=== PATIENT | female | born 1980 | race African-American/Black ===

== ENCOUNTER 2024-05-30 12:49 | Emergency (ER) | payer OTHER, MEDICARE ==
[2024-05-30] MEDS ORDERED: Ketorolac Tromethamine 30 MG (1 mL) VIAL ONE (13:27)
[2024-05-30] MEDS ORDERED: Methocarbamol 500 MG TAB ONE (13:28)
[2024-05-30] MEDS ORDERED: HYDROcodone/Acetaminophen 5/325 mg Tablet ONE (13:57)
== END 2024-05-30 14:11 | disposition home or self-care (01) ==
LOC: CSHERS 12:49
DX: M54.31 Sciatica, right side (principal); N61.0 Mastitis without abscess
CPT/HCPCS: 96372; 99283; J1885

== ENCOUNTER 2024-06-07 11:41 | Emergency (ER) | payer MEDICARE ==
[2024-06-07] MEDS ORDERED: Cyclobenzaprine 10 MG TAB ONE (13:34)
[2024-06-07] MEDS ORDERED: Ketorolac Tromethamine 30 MG (1 mL) VIAL ONE (13:34)
[2024-06-07] MEDS ORDERED: Lidocaine 4% Patch ONE (13:34)
[2024-06-07] MEDS ORDERED: Gabapentin 300 MG CAP ONE (13:40)
== END 2024-06-07 16:04 | disposition home or self-care (01) ==
LOC: CSHERS 11:41
DX: M54.31 Sciatica, right side (principal); M47.816 Spondylosis without myelopathy or radiculopathy, lumbar region; M99.63 Osseous and subluxation stenosis of intervertebral foramina of lumbar region
CPT/HCPCS: 72131; 96372; 99283; J1885